=== PATIENT | male | born 1985 ===

== ENCOUNTER 2017-01-01 18:29 | Emergency (ER) | payer OTHER ==
[2017-01-01 18:44] VITALS: BP 136/90; PULSE 68; RESP 18; TEMP 99.2; O2SAT 100
[2017-01-01] MEDS ORDERED: Lidocaine 2% w Epi 1:100,000 Inj IJ STA (19:01)
[2017-01-01] MEDS ORDERED: Povidone Iodine Oint 10% Foilpak UD ONE (19:18)
[2017-01-01] MEDS ORDERED: Lidocaine 2% w Epi 1:100,000 Inj IJ ONE (19:21)
--- NOTE | 2017-01-01 19:32 | ED PDOC ---
Lower Extremity Pain/Injury Time Seen by Provider: 01/01/17 18:43 Chief Complaint (Nursing): Lower Extremity Problem/Injury Chief Complaint (Provider): Abscess History Per: Patient History/Exam Limitations: no limitations Additional Complaint(s): Kwaku Martinez, a 31 year old male, presents to the ED with an abscess on his right inner thigh x3 days. The patient reports that he tried to drain the abscess on his own using a supervisor transferring and boxing. Past Medical History Reviewed: Historical Data, Nursing Documentation, Vital Signs Vital Signs: Last Vital Signs Temp 99.2 F 01/01/17 18:40 Pulse 68 01/01/17 18:40 Resp 18 01/01/17 18:40 BP 136/90 01/01/17 18:40 Pulse Ox 100 01/01/17 18:40 - Medical History PMH: No Chronic Diseases - Surgical History Surgical History: No Surg Hx - Family History Family History: States: No Known Family Hx - Living Arrangements Living Arrangements: With Family - Social History Current smoker - smoking cessation education provided: No Alcohol: Occasional Drugs: Denies - Home Medications Home Medications: Ambulatory Orders Medication Instructions Recorded Cephalexin [Keflex] 500 mg PO BID #20 capsule 01/01/17 - Allergies Allergies/Adverse Reactions: Allergies Allergy/AdvReac Type Severity Reaction Status Date / Time No Known Allergies Allergy Verified 01/01/17 18:40 Review of Systems Musculoskeletal: Positive for: Other (Abscess to right inner thigh.) Physical Exam - Reviewed Nursing Documentation Reviewed: Yes Vital Signs Reviewed: Yes - Physical Exam Appears: Positive for: Non-toxic, No Acute Distress Head Exam: Positive for: ATRAUMATIC, NORMAL INSPECTION, NORMOCEPHALIC Skin: Positive for: Normal Color, Warm, Dry Extremity: Positive for: Normal ROM, Other (2cm indurated abscess on righ tinner thigh; no erythema.). Negative for: Tenderness, Deformity Neurologic/Psych: Positive for: Alert, Oriented, Gait - ECG O2 Sat by Pulse Oximetry: 100 (RA) Pulse Ox Interpretation: Normal Medical Decision Making Medical Decision Makin Initial Impression: 31 year old male presenting with abscess Initial Plan: * Boostrix 0.5ml * Lidocaine 5ml IJ * Reevaluation Scribe Attestation Documented by Tatyana Pelletier acting as a scribe for Saadia Landa PA-C. Scribe Attestation All medical record entries made by the Scribe were at my direction and personally dictated by me. I have reviewed the chart and agree that the record accurately reflects my personal performance of the history, physical exam, medical decision making, and the department course for this patient. I have also personally directed, reviewed, and agree with the discharge instructions and disposition Disposition - Clinical Impression Clinical Impression: Abscess, Tetanus toxoid vaccination administered at current visit - Patient ED Disposition Is Patient to be Admitted: No - Disposition Disposition: Routine/Home Disposition Time: 17:31 Condition: STABLE Prescriptions: Cephalexin [Keflex] 500 mg PO BID #20 capsule Instructions: Abscess (ED)
[2017-01-01] MEDS ORDERED: TDAP Vaccine 0.5 mL Syr IM ONE (19:34)
== END 2017-01-01 19:48 | disposition home or self-care (01) ==
LOC: H.ER 18:29
DX: L02.415 Cutaneous abscess of right lower limb (principal)